=== PATIENT | male | born 1945 | race Caucasian/White ===

== ENCOUNTER 2022-10-11 16:07 | Inpatient (IN) | payer MEDICARE, MEDICAID ==
[2022-10-11] MEDS ORDERED: Docusate Sodium 100 MG Cap PO PRN (16:50)
[2022-10-11] MEDS ORDERED: Sodium Chloride 0.9% 10 ML Syringe FLUSH PRN (16:50)
[2022-10-11] MEDS ORDERED: Ondansetron 4 MG/2 ML SDV IVPUSH PRN (16:50)
[2022-10-11] MEDS ORDERED: Ondansetron 4 MG Tab.DIS PO PRN (16:50)
[2022-10-11 18:04] LABS: ANION GAP 14.1 mEq/L (7-13); CHLORIDE,CL 115 mmol/L (98-107); SODIUM,NA 152 mmol/L (136-145)
[2022-10-11 18:05] LABS: ESTIMATED GFR 24 mL/min (>=60)
[2022-10-11] MEDS: cefTRIAXone 2 GM Vial IVPUSH SCH (18:41)
[2022-10-11] MEDS: Diltiazem 120 MG Cap.CD PO SCH (18:41)
[2022-10-11] MEDS: Sodium Chloride 0.9% 1,000 ML IV SCH (18:44)
[2022-10-11] MEDS: Sodium Chloride 0.9% 10 ML Syringe FLUSH SCH (20:04)
[2022-10-11] MEDS: Heparin Sodium 5,000 Units/ML Vial SUBCUT SCH (22:47)
[2022-10-12] MEDS: Sodium Chloride 0.9% 1,000 ML IV SCH ×4 (01:44→21:05)
[2022-10-12] MEDS: Heparin Sodium 5,000 Units/ML Vial SUBCUT SCH ×3 (06:20→21:09)
[2022-10-12 07:18] LABS: ANION GAP 13.1 mEq/L (7-13)
[2022-10-12] MEDS: Diltiazem 120 MG Cap.CD PO SCH (08:44)
[2022-10-12] MEDS: Sodium Chloride 0.9% 10 ML Syringe FLUSH SCH ×2 (13:12→21:07)
[2022-10-12] MEDS: cefTRIAXone 2 GM Vial IVPUSH SCH (17:36)
[2022-10-13] MEDS: Sodium Chloride 0.9% 1,000 ML IV SCH ×3 (03:04→22:33)
[2022-10-13] MEDS: Heparin Sodium 5,000 Units/ML Vial SUBCUT SCH ×3 (05:58→21:46)
[2022-10-13 06:40] LABS: ANION GAP 12.3 mEq/L (7-13)
[2022-10-13] MEDS: Sodium Chloride 0.9% 10 ML Syringe FLUSH SCH ×2 (08:13→20:43)
[2022-10-13] MEDS: Diltiazem 120 MG Cap.CD PO SCH (08:14)
[2022-10-13] MEDS: cefTRIAXone 2 GM Vial IVPUSH SCH (17:30)
[2022-10-14] MEDS: Heparin Sodium 5,000 Units/ML Vial SUBCUT SCH ×3 (05:21→21:32)
[2022-10-14 06:50] LABS: ANION GAP 11.4 mEq/L (7-13)
[2022-10-14] MEDS: Diltiazem 120 MG Cap.CD PO SCH (08:31)
[2022-10-14] MEDS: Sodium Chloride 0.9% 10 ML Syringe FLUSH SCH ×2 (08:33→21:28)
[2022-10-14] MEDS: Sodium Chloride 0.9% 1,000 ML IV SCH ×2 (08:35→18:33)
[2022-10-14] MEDS: cefTRIAXone 2 GM Vial IVPUSH SCH (17:26)
[2022-10-15] MEDS: Acetaminophen 325 MG Tab PO PRN ×2 (00:29→08:42)
[2022-10-15] MEDS: Sodium Chloride 0.9% 1,000 ML IV SCH (04:35)
[2022-10-15] MEDS: Heparin Sodium 5,000 Units/ML Vial SUBCUT SCH ×3 (05:40→21:40)
[2022-10-15 06:56] LABS: ANION GAP 11.4 mEq/L (7-13)
[2022-10-15] MEDS: Diltiazem 120 MG Cap.CD PO SCH (08:40)
[2022-10-15] MEDS: Sodium Chloride 0.9% 10 ML Syringe FLUSH SCH ×2 (08:42→21:40)
[2022-10-15] MEDS: cefTRIAXone 2 GM Vial IVPUSH SCH (17:10)
[2022-10-16] MEDS: Heparin Sodium 5,000 Units/ML Vial SUBCUT SCH ×3 (06:01→21:42)
[2022-10-16] MEDS ORDERED: Iopamidol 612 MG/ML 100 ML Bottle IARTIC ONE (08:14)
[2022-10-16] MEDS: Diltiazem 120 MG Cap.CD PO SCH (08:31)
[2022-10-16] MEDS: Sodium Chloride 0.9% 10 ML Syringe FLUSH SCH ×2 (08:32→21:44)
[2022-10-16] MEDS: cefTRIAXone 2 GM Vial IVPUSH SCH (16:54)
[2022-10-17] MEDS: Heparin Sodium 5,000 Units/ML Vial SUBCUT SCH ×3 (05:47→21:17)
[2022-10-17 07:04] LABS: ANION GAP 11.3 mEq/L (7-13)
[2022-10-17] MEDS: Diltiazem 120 MG Cap.CD PO SCH (08:29)
[2022-10-17] MEDS ORDERED: Sodium Chloride 0.9% 1,000 ML IV SCH (08:30)
[2022-10-17] MEDS: Sodium Chloride 0.9% 10 ML Syringe FLUSH SCH ×2 (09:35→21:15)
[2022-10-17] MEDS: Tamsulosin 0.4 MG Cap.ER PO SCH (21:14)
[2022-10-18] MEDS: Heparin Sodium 5,000 Units/ML Vial SUBCUT SCH ×3 (06:01→21:28)
[2022-10-18 07:06] LABS: ANION GAP 11.1 mEq/L (7-13)
[2022-10-18] MEDS: Diltiazem 120 MG Cap.CD PO SCH (08:40)
[2022-10-18] MEDS: Sodium Chloride 0.9% 10 ML Syringe FLUSH SCH ×2 (17:58→21:28)
[2022-10-18] MEDS: Tamsulosin 0.4 MG Cap.ER PO SCH (21:27)
[2022-10-19] MEDS: Heparin Sodium 5,000 Units/ML Vial SUBCUT SCH ×3 (05:46→21:11)
[2022-10-19] MEDS: Diltiazem 120 MG Cap.CD PO SCH (08:59)
[2022-10-19] MEDS: Sodium Chloride 0.9% 10 ML Syringe FLUSH SCH ×2 (09:00→21:15)
[2022-10-19] MEDS: Tamsulosin 0.4 MG Cap.ER PO SCH (21:13)
[2022-10-20] MEDS: Heparin Sodium 5,000 Units/ML Vial SUBCUT SCH ×3 (06:22→21:07)
[2022-10-20] MEDS: Diltiazem 120 MG Cap.CD PO SCH (09:48)
[2022-10-20] MEDS: Sodium Chloride 0.9% 10 ML Syringe FLUSH SCH ×2 (09:49→21:09)
[2022-10-20] MEDS: Tamsulosin 0.4 MG Cap.ER PO SCH (21:07)
[2022-10-21] MEDS: Heparin Sodium 5,000 Units/ML Vial SUBCUT SCH ×3 (05:50→21:15)
[2022-10-21] MEDS: Diltiazem 120 MG Cap.CD PO SCH (08:08)
[2022-10-21] MEDS: Sodium Chloride 0.9% 10 ML Syringe FLUSH SCH ×2 (08:10→21:16)
[2022-10-21] MEDS: Tamsulosin 0.4 MG Cap.ER PO SCH (21:15)
[2022-10-22] MEDS: Heparin Sodium 5,000 Units/ML Vial SUBCUT SCH (05:42)
[2022-10-22] MEDS: Diltiazem 120 MG Cap.CD PO SCH (08:25)
[2022-10-22] MEDS: Sodium Chloride 0.9% 10 ML Syringe FLUSH SCH ×2 (08:26→20:03)
[2022-10-22] MEDS: Apixaban 5 MG Tab PO SCH (20:02)
[2022-10-22] MEDS: Tamsulosin 0.4 MG Cap.ER PO SCH (20:02)
[2022-10-23 06:42] LABS: ANION GAP 12.8 mEq/L (7-13)
[2022-10-23] MEDS ORDERED: Furosemide 20 MG/2 ML VIAL IVPUSH ONE (06:52)
[2022-10-23] MEDS ORDERED: Sodium Polystyrene Sulfonate 15 GM/60 ML Susp 60 ML Bot PO ONE (06:52)
[2022-10-23] MEDS: Sodium Chloride 0.9% 10 ML Syringe FLUSH SCH ×3 (07:52→20:47)
[2022-10-23] MEDS ORDERED: Aspirin 325 MG Tab.EC PO SCH (08:00)
[2022-10-23] MEDS: Diltiazem 120 MG Cap.CD PO SCH (09:01)
[2022-10-23] MEDS: Apixaban 5 MG Tab PO SCH ×2 (09:01→20:47)
[2022-10-23] MEDS: Finasteride 5 MG Tab PO SCH (09:01)
[2022-10-23] MEDS: Tamsulosin 0.4 MG Cap.ER PO SCH (20:47)
[2022-10-24 06:37] LABS: ANION GAP 9.4 mEq/L (7-13)
[2022-10-24] MEDS: Sodium Chloride 0.9% 10 ML Syringe FLUSH SCH ×3 (07:54→21:26)
[2022-10-24] MEDS: Sodium Chloride 0.9% 1,000 ML IV SCH (07:54)
[2022-10-24] MEDS: Diltiazem 120 MG Cap.CD PO SCH (08:00)
[2022-10-24] MEDS: Furosemide 20 MG Tab PO SCH (08:01)
[2022-10-24] MEDS: Apixaban 5 MG Tab PO SCH ×2 (08:01→21:25)
[2022-10-24] MEDS: Finasteride 5 MG Tab PO SCH (08:01)
[2022-10-24] MEDS ORDERED: Bumetanide 1 MG/4 ML MDV IVPUSH ONE (21:08)
[2022-10-24] MEDS: Tamsulosin 0.4 MG Cap.ER PO SCH (21:26)
[2022-10-25] MEDS: Sodium Chloride 0.9% 1,000 ML IV SCH (03:54)
[2022-10-25 06:21] LABS: ANION GAP 10.9 mEq/L (7-13)
[2022-10-25] MEDS: Apixaban 5 MG Tab PO SCH ×2 (07:27→08:52)
[2022-10-25] MEDS: Acetaminophen 325 MG Tab PO PRN (07:27)
[2022-10-25] MEDS: Furosemide 20 MG Tab PO SCH ×2 (07:28→08:52)
[2022-10-25] MEDS: Finasteride 5 MG Tab PO SCH ×2 (07:28→08:52)
[2022-10-25] MEDS: Diltiazem 120 MG Cap.CD PO SCH ×2 (07:28→08:51)
[2022-10-25] MEDS: Sodium Chloride 0.9% 10 ML Syringe FLUSH SCH (08:52)
== END 2022-10-25 09:25 | disposition other institution (70) | DRG 871 ==
LOC: DL.MS 16:07
PROVIDERS: ADMIT Hospitalist; ATTEND Internal Medicine
DX: A41.51 Sepsis due to Escherichia coli [E. coli] (principal); G93.41 Metabolic encephalopathy; N17.9 Acute kidney failure, unspecified; E87.1 Hypo-osmolality and hyponatremia; N13.6 Pyonephrosis; Z20.822 Contact with and (suspected) exposure to COVID-19; N30.90 Cystitis, unspecified without hematuria; N13.9 Obstructive and reflux uropathy, unspecified; E87.8 Other disorders of electrolyte and fluid balance, not elsewhere classified; E87.5 Hyperkalemia; J43.2 Centrilobular emphysema; I48.0 Paroxysmal atrial fibrillation; F17.200 Nicotine dependence, unspecified, uncomplicated; R26.89 Other abnormalities of gait and mobility; N40.1 Benign prostatic hyperplasia with lower urinary tract symptoms; R33.8 Other retention of urine; B35.1 Tinea unguium; N32.0 Bladder-neck obstruction; Z79.82 Long term (current) use of aspirin; Z79.51 Long term (current) use of inhaled steroids; Z79.2 Long term (current) use of antibiotics; Z79.899 Other long term (current) drug therapy; Z79.01 Long term (current) use of anticoagulants
CPT/HCPCS: 36415; 51702; 74177; 80048; 80053; 81001; 83735; 84132; 84133; 85025; 86140; 93005; 97110-GP; 97116-GP; 97129-GO; 97161-GP; 97165-GO; 97530-GO; 97535-GO; 99223; 99232; 99233; 99238; A9270-GY; J0696; J1644; J1940; J3370; J3490; J7030; J7050; Q9967; U0002